=== PATIENT | female | born 1945 | race Caucasian/White ===

== ENCOUNTER → 2017-03-24 | Outpatient (CLI) | payer MEDICARE, OTHER ==
--- NOTE | 2017-03-24 14:00 | BD ---
EXAMINATION TYPE: MG DEXA axial skeleton. DATE OF EXAM: 03/24/2017 COMPARISON: 02.14.2015 CLINICAL HISTORY: PT IS A 71 YR OLD FEMALE: ICD-10 CODE: M81.0 AGE RELATED OSTEOPOROSIS Height: 63.5 Weight: 191 FRAX RISK QUESTIONS: Alcohol (3 or more units per day): NO Family History (Parent hip fracture): NO Glucocorticoids (More than 3mos): NO (Ex: prednisone, prednisolone, methylprednisolone, dexamethasone, and hydrocortisone). History of Fracture in Adulthood: YES Secondary Osteoporosis: NO 1. Type 1 Diabetes: NO 2. Hyperthyroidism: NO 3. Menopause before 45: NO 4. Malnutrition: NO 5. Chronic liver disease: NO Rheumatoid Arthritis: NO Current Tobacco Use: NO RISK FACTORS HISTORY OF: FOOT AND TOES...> 52 YRS OLD Family History of Osteoporosis: NO Active: YES Diet low in dairy products/other sources of calcium: NO Postmenopausal woman: YES HYST AT AGE 57 YRS OLD Hyperparathyroidism: NO Adrenal Insufficiency: NO MEDICATIONS: Additional Medications: BP MEDS, STATIN FOR CHOLESTEROL, VIT D AND CALCIUM PRN Additional History: NONE TO NOTE EXAM MEASUREMENTS: Bone mineral densitometry was performed using the [employer] System. Bone mineral density as measured about the Lumbar spine is: ----- L1-L4(G/cm2): 1.091 T Score Values are as follows: ----- L1: -1.3 ----- L2: -0.6 ----- L3: 0.2 ----- L4: -1.3 ----- L1-L4: -0.7 Bone mineral density has: Increased 1.9% since study of: 02.14.2015 Bone mineral density about the R hip (g/cm2): 0.854 Bone mineral density about the L hip (g/cm2): 0.819 T Score values are as follows: -----R Neck: -1.9 -----L Neck: -2.3 -----R Total: -1.2 -----L Total: -1.5 Bone mineral density has: Increased 0.5% since study of: 02.14.2015 FRAX%S: THERE IS A 19.7% CHANCE OF A MAJOR OSTEOPOROTIC FX AND A 4.1% FOR HIP FX....PROBABILITY OF FX IN 10 YRS TIME IMPRESSION: Osteopenia (T Score between -2.5 and -1) as noted by T score values with respect to the bilateral hip s. There is slightly increased risk of fracture and the patient may be considered for treatment. Re-Screen 2-5 years. NOTE: T-SCORE=SD OF THE YOUNG ADULT MEAN.
== END | disposition home or self-care (01) ==
LOC: RADBDWWP 12:22
PROVIDERS: ATTEND Family Medicine
DX: M85.89 Other specified disorders of bone density and structure, multiple sites (principal)
CPT/HCPCS: 77080

== ENCOUNTER → 2017-05-13 | Outpatient (CLI) | payer MEDICARE, OTHER ==
--- NOTE | 2017-05-13 14:09 | US ---
EXAMINATION TYPE: US venous doppler duplex LE DATE OF EXAM: 05/13/2017 1:46 PM COMPARISON: NONE CLINICAL HISTORY: I83.893 Varicose veins bilateral lower extremities. Pt states redness, pain left me dial calf/ states she was diagnosed with phlebitis SIDE PERFORMED: Bilateral TECHNIQUE: The lower extremity deep venous system is examined utilizing real time linear array sonog john with graded compression, doppler sonography and color-flow sonography. VESSELS IMAGED: External Iliac Vein (EIV) Common Femoral Vein Deep Femoral Vein Greater Saphenous Vein * Femoral Vein Popliteal Vein Small Saphenous Vein * Proximal Calf Veins (* superficial vessels) Right Leg: Negative for DVT Left Leg: Negative for DVT, in area of redness and pain there is probable thrombophlebitis left medi al calf Grayscale, color doppler, spectral doppler imaging performed of the deep veins of the lower extremiti es. There is normal flow, compressibility, vascular waveforms. IMPRESSION: 1. No sonographic evidence of deep venous arthrosis within either lower extremity. 2. Markedly enlarged and some partially thrombosed superficial vasculature most compatible with throm bophlebitis/superficial venous thrombosis of varicoceles veins of the medial upper calf in the patien t's area of pain.
== END ==
LOC: RADUSWWP 13:18
PROVIDERS: ATTEND Family Medicine
DX: I83.893 Varicose veins of bilateral lower extremities with other complications (principal)
CPT/HCPCS: 93970

== ENCOUNTER → 2020-01-11 | Outpatient (CLI) | payer MEDICARE ==
--- NOTE | 2020-01-12 14:26 | BD ---
EXAMINATION TYPE: Axial Bone Density DATE OF EXAM: 01/11/2020 COMPARISON: 03/24/2017 CLINICAL HISTORY: Height: 62.5 IN Weight: 206 LBS FRAX RISK QUESTIONS: History of Fracture in Adulthood: YES RT FOOT AGE 64 Secondary Osteoporosis: Rheumatoid Arthritis: YES RISK FACTORS HISTORY OF: Active: YES Postmenopausal woman: TOTAL HYST AGE 56 MEDICATIONS: Additional Medications: VIT D, CHOLESTEROL MEDS, BLOOD THINNER, ATENOLOL, RESTLESS LEGS MEDS, MEDICAT ION FOR AFIB, B-12,ASPIRIN LOW DOSE Additional History: UTERINE CANCER EXAM MEASUREMENTS: Bone mineral densitometry was performed using the [employer] System. Bone mineral density as measured about the Lumbar spine is: ----- L1-L4(G/cm2): 1.110 T Score Values are as follows: ----- L2: 0.1 ----- L3: 0.1 ----- L4: -1.6 ----- L1-L4: -0.6 Bone mineral density has: Increased 1.1% since study of: 03/24/2017 Bone mineral density about the R hip (g/cm2): 0.713 Bone mineral density about the L hip (g/cm2): 0.699 T Score values are as follows: -----R Neck: -2.3 -----L Neck: -2.4 -----R Total: -1.6 -----L Total: -1.7 Bone mineral density has: Decreased -3.9% since study of: 03/24/2017 IMPRESSION: Osteopenia (T Score between -2.5 and -1). There is slightly increased risk of fracture and the patient may be considered for treatment. Re-Screen 2-5 years. NOTE: T-SCORE=SD OF THE YOUNG ADULT MEAN.
== END | disposition home or self-care (01) ==
LOC: RADBDWWP 16:02
PROVIDERS: ATTEND Nurse Practitioner Family
DX: Z13.820 Encounter for screening for osteoporosis (principal); M85.80 Other specified disorders of bone density and structure, unspecified site
CPT/HCPCS: 77080

== ENCOUNTER → 2021-09-14 | Outpatient (CLI) | payer MEDICARE ==
--- NOTE | 2021-09-14 17:50 | CT ---
EXAMINATION TYPE: CT angio chest CT DLP: 502.8 mGycm, Automated exposure control for dose reduction was used. DATE OF EXAM: 09/14/2021 5:33 PM COMPARISON: None. CLINICAL INDICATION:Female, 75 years old with history of R06.09 Dyspnea; SOB TECHNIQUE/CONTRAST: CTA scan of the thorax is performed with IV Contrast, patient injected with 90 mL of Isovue 370, pulm onary embolism protocol. MIP images are created and reviewed. FINDINGS: Pulmonary Artery: There is no evidence for a filling defect within the pulmonary vasculature to sugge st acute pulmonary embolism. The pulmonary artery is of normal size. Lungs/Pleura: No evidence of focal consolidation, pleural effusion or pneumothorax. Airway: Large airways are patent. Heart: The heart is mildly enlarged for size. Vasculature: No evidence of aortic aneurysm. Mediastinum: No gross evidence of adenopathy. Musculoskeletal: No acute osseous abnormalities. Partially visualized fixation hardware in the lower cervical spine. There is multilevel disc degeneration changes throughout the spine. Soft Tissues: Unremarkable. Lower neck: No significant findings. Upper Abdomen: No significant findings. IMPRESSION: 1. No evidence of pulmonary embolism. 2. Mild cardiomegaly.
== END | disposition home or self-care (01) ==
LOC: RADCTMAIN 15:19
PROVIDERS: ATTEND Internal Medicine
DX: I51.7 Cardiomegaly (principal); R06.09 Other forms of dyspnea
CPT/HCPCS: 82565; 84520; 71275; 36415; Q9967

== ENCOUNTER → 2022-01-09 | Outpatient (CLI) | payer MEDICARE ==
[2022-01-09 23:52] LABS: HCT 38.4 % (37.2-46.3); HGB 12.4 g/dL (12.0-15.0); MCH 29.8 pg (27.0-32.0); MCHC 32.3 g/dL (32.0-37.0); MCV 92.3 fL (80.0-97.0); Mean Platelet Volume 10.1 fL (9.5-12.2); NRBC Per 100 WBC 0 /100 WBCS (0.0-0.0); Platelet Count 252 X 10*3/uL (140-440); RBC 4.16 X 10*6/uL (4.10-5.20); RDW 12.2 % (11.5-14.5); WBC 11.28 X 10*3/uL (4.50-10.00)
[2022-01-10 00:05] LABS: African American GFR (CKD) 99.1 (60.0-200.0); Anion Gap 11.6 mmol/L (10.00-18.00); Blood Urea Nitrogen 14.2 mg/dL (9.0-27.0); Carbon Dioxide 25.2 mmol/L (20.0-27.5); Non-African American GFR(CKD) 85.5 (60.0-200.0); Potassium 4.1 mmol/L (3.5-5.5)
== END | disposition home or self-care (01) ==
LOC: LABPAT 14:57
PROVIDERS: ATTEND Internal Medicine Interventional Cardiology
DX: Z01.812 Encounter for preprocedural laboratory examination (principal); R07.9 Chest pain, unspecified
CPT/HCPCS: 80051; 82565; 84520; 85027

== ENCOUNTER 2022-01-11 08:37 | Day surgery (SDC) | payer MEDICARE ==
[2022-01-09 10:58] VITALS: BMI 34.3
[~2022-01-11 08:37] MED LIST: ALPRAZolam 0.25 MG TAB PO PRN; ALPRAZolam 0.5 MG TAB PO PRN; ASPIRIN 325 MG TAB PO STA; ATORVASTATIN 80 MG TAB PO STA; HEPARIN SODIUM,PORCINE 10,000 UNIT in SODIUM CHLORIDE 0.9% 1,000 ML IRRIGATION PRN; HEPARIN SODIUM,PORCINE 2,500 UNIT in SODIUM CHLORIDE 0.9% 250 ML IRRIGATION PRN; NITROGLYCERIN SL TABS 0.4 MG TAB SUBLINGUAL PRN
[2022-01-11] MEDS: SODIUM CHLORIDE 0.9% 1,000 ML in EMPTY BAG 1 BAG IV SCH ×2 (09:02→16:31)
[2022-01-11] MEDS ORDERED: VERAPAMIL 2.5 MG/ML 2 ML AMP ONE (09:10)
[2022-01-11] MEDS ORDERED: HEPARIN SODIUM 1,000 UN/ML (10ML VL) ONE (09:29)
[2022-01-11] MEDS ORDERED: MIDAZOLAM 2 MG/2 ML VIAL IV ONE (09:34)
[2022-01-11] MEDS ORDERED: LIDOCAINE 1% INJ 10MG/ML (30 ML VIAL-PF) SQ ONE (09:41)
[2022-01-11] MEDS ORDERED: VERAPAMIL SYRINGE (5 MG/10 ML) INTRAARTER ONE (09:42)
[2022-01-11] MEDS: HEPARIN SODIUM 1,000 UN/ML (10ML VL) IV ONE ×2 (09:44→09:56)
[2022-01-11] MEDS ORDERED: niCARdipine 25 MG/10 ML VIAL ONE (09:57)
[2022-01-11] MEDS ORDERED: NOREPINEPHRINE 4 MG in SODIUM CHLORIDE 0.9% 250 ML IV ONE (10:10)
[2022-01-11] MEDS ORDERED: CLOPIDOGREL 75 MG TAB ONE (10:34)
[2022-01-11] MEDS ORDERED: CLOPIDOGREL 75 MG TAB PO ONE (10:36)
[2022-01-11] MEDS ORDERED: NITROGLYCERIN 1000MCG/10ML SYRINGE INTRACORON ONE (10:54)
[2022-01-11] MEDS ORDERED: IOPAMIDOL-370 125ML BTL INJ ONE (11:04)
[2022-01-11] MEDS ORDERED: NITROGLYCERIN SL TABS 0.4 MG TAB SUBLINGUAL PRN ×2 (11:14→11:15)
[2022-01-11] MEDS ORDERED: RX INFO: IV CONTRAST WAS GIVEN 1 EACH MISC MISCELLANE PRN (11:15)
[2022-01-11] MEDS ORDERED: ZOLPIDEM 5 MG TAB PO PRN (11:15)
[2022-01-11] MEDS ORDERED: ATROPINE SULFATE 0.1 MG/ML 10ML SYRINGE IV PRN (11:15)
[2022-01-11] MEDS ORDERED: MAG HYDROX/AL HYDROX/SIMETH 30 ML CUP PO PRN (11:15)
[2022-01-11] MEDS ORDERED: SODIUM CHLORIDE 0.9% 1,000 ML in EMPTY BAG 1 BAG IV SCH (11:15)
--- NOTE | 2022-01-11 11:24 | P.PCN ---
Date of Procedure: 01/11/22 Operative Findings: CARDIAC CATHETERIZATION AND PERCUTANEOUS CORONARY INTERVENTION PERFORMING PHYSICIAN: Da Chacon MD, [facility] PROCEDURE PERFORMED: 1. Selective right and left coronary angiogram 2. Left heart catheterization 3. Successful stenting of proximal LCx using 3.0 x 15 mm Xience ANTONIO which with an excellent angiographic results 4. Intravascular ultrasound of the left circumflex coronary artery INDICATION: This is a 76-year-old female patient was coronary artery disease and prior stenting of the LAD and known intermediate disease involving a dominant left circumflex as well as hypertension and dyslipidemia and paroxysmal atrial fibrillation was seen in the office recently for further evaluation of chest discomfort. She underwent myocardial perfusion imaging stress test and that showed large area of reversibility involving the inferolateral segment of the LV. In the light of that a heart catheterization wasn't by COMPLICATION: None APPROACH: Right radial artery LEVEL OF SEDATION: Moderate with the sedation time off 84 minutes PROCEDURE DESCRIPTION: After obtaining an informed consent the patient was brought to the cardiac labour market economist. The right radial artery was cannulated using micropuncture technique, the micropuncture wire passed easily then I placed a 6-Afghan sheath in the right radial artery. At that 0.2 mg of verapamil intra-arterial and 5000 use of heparin intravenous given. Selective right and left coronary angiogram performed using JR4 and JL 3.5 catheters. After that the heart catheterization was performed using 6-Afghan pigtail catheter. I did after that intervene on the left circumflex coronary artery. SELECTIVE CORONARY ANGIOGRAM: The right coronary artery: Medium caliber vessel and nondominant vessel. The LCx is critically disease in the midportion and diffusely disease as well as. Left main: Large caliber vessel was mild disease only. Bifurcates into a LCx and LAD The left circumflex: Large caliber vessel a dominant vessel. The proximal LCx which is a large caliber vessel has eccentric calcified lesion appears to be critical in the range of 99.9%. The circumflex distally has mild disease only and gives rises into alcohol obtuse marginal branches before it bifurcates into PDA and PLV branches. The left anterior descending artery: Large caliber vessel. The proximal LAD has mild disease only. The mid LAD is a stented and the stent is patent. The LAD in the midportion gives rises into a large size diagonal branch has a lesion appeared to be in the range of 80% proximally. The LAD distally appears to be angiographically normal. HEMODYNAMICS: The LVEDP was about 4 mmHg was no significant gradient across aortic valve PCI OF THE LCx: Anticoagulation was initiated using heparin with continuous ACT monitoring throughout the procedure. I did engage the left main using an LCx 3.0 guiding catheter. I did wire the left circumflex using a whisper wire. Initially the wire went to the LAD so I left the wire temporary in the LAD to under the guide until I get another wire to the LCx then I pulled the wire from the LAD and I try to wire the LCx with a mamadou wire but the wire would not cross I pulled the wire out. Balloon angioplasty of the LCx was initiated using initially 1.5 mm balloon and subsequently 2.0 mm balloon and subsequently 2.5 mm balloon. I started with a small balloon because the lesion was eccentric and critical and on angulation. Attempting advancing 3.0 x 15 mm stent was unsuccessful because the stent would not cross the lesion in the mid left circumflex coronary artery. At that point I attempted advancing the stent with adjunctive use of guide liner and that also was unsuccessful. Again I balloon the LCx at that point using 3.0 mm balloon. Subsequently attempting advancing the stent was again unsuccessful. I did again this time balloon the LCx using 3.0 noncompliant balloon which was inflated under 20 yovana for 20 seconds. Attempting advancing the stent with adjunctive use of guide liner was again unsuccessful. At that point I pulled the guide liner out and I wire the left circumflex was a mamadou wire and that was a run-through wire. Please note that at the beginning I did exchange to whisper wire into a run-through wire using super cross catheter. Now attempting advancing the stent over the run-through wire was successful. I deployed the stent under 12 yovana for 20 seconds. The following angiogram showed an edge dissection appeared to be nonflow limiting and no dye staining and by the end we achieved ISABEL-3 flow. I did an intravascular ultrasound and that showed that the stent was well opposed to the wall. I could not advance the IVUS catheter distal to the stented segment to check the small dissection/edge dissection. Because we achieved ISABEL-3 flow and the patient was asymptomatic and hemodynamically stable and the dissection was nonflow limiting we decided to stop. CONCLUSION: #1 patent stent in the LAD. Critical disease involving the first large diagonal branch #2 critical disease involving the proximal LCx which is a dominant vessel. I performed successful stenting of the LCx with a good angiographic results #3 subtotally occluded and diffusely disease nondominant medium sized right coronary artery POSTPROCEDURE MANAGEMENT: #1 dual antiplatelet therapy aspirin and Plavix for at least 12 months #2 aggressive cholesterol control #3 follow-up with the patient
[2022-01-11] MEDS: GABAPENTIN 300 MG CAP PO SCH (20:04)
[2022-01-11] MEDS ORDERED: ATORVASTATIN 80 MG TAB PO SCH (21:00)
[2022-01-11] MEDS ORDERED: atenoloL 50 MG TAB PO SCH (21:00)
[2022-01-11] MEDS ORDERED: DILTIAZEM CD 120 MG CAP.ER.24H PO SCH (21:00)
[2022-01-11] MEDS ORDERED: ASPIRIN 81 MG PO SCH (21:00)
[2022-01-12 03:14] VITALS: RESP 18; TEMP 97.9
--- NOTE | 2022-01-12 06:47 | P.DS ---
Providers Attending physician: Da Chacon Consults: 01/11/22 11:15 Consult Physician Routine Consulting Provider: [facility] Consult Reason/Comments: Post Interventional Patient Do you want consulting provider notified?: Already Contacted Primary care physician: Stated None Hospital Course: The patient is a pleasant 76-year-old female patient who was seen in the office recently for further evaluation of chest discomfort. She underwent myocardial perfusion imaging stress test and that came in to be abnormal showing large area of reversibility laterally. In the light of that a heart catheterization was advised. The heart catheterization revealed critical disease involving the proximal LCx. She underwent yesterday successful stenting a challenging lesion in the left circumflex with a good angiographic results. She was seen this morning. Today's January [id number]. She is asymptomatic from a perivascular standpoint overview. He is hemodynamically stable. She will be discharged on triple therapy. I'll follow-up with the patient in a week. Plan - Discharge Summary Discharge Rx Participant: Yes New Discharge Prescriptions: New Clopidogrel [Plavix] 75 mg PO DAILY #90 tab Continue rOPINIRole HCL [Requip] 0.5 mg PO TID Atorvastatin [Lipitor] 80 mg PO HS #30 tab lisinopriL [Zestril] 5 mg PO DAILY #30 tab Nitroglycerin Sl Tabs [Nitrostat] 0.4 mg SUBLINGUAL Q5M PRN #25 tab PRN Reason: Chest Pain atenoloL [Tenormin] 100 mg PO DAILY Aspirin EC [Ecotrin] 81 mg PO HS Gabapentin [Neurontin] 300 mg PO BID atenoloL [Tenormin] 50 mg PO HS Ergocalciferol [Vitamin D2 (1250 Mcg = 06449 Iu)] 1,250 mcg PO DIEGO hydroCHLOROthiazide 25 mg PO DAILY dilTIAZem HCL [dilTIAZem HCL 24Hr ER] 120 mg PO HS Changed Apixaban [Eliquis] 2.5 mg PO BID #0 Discharge Medication List rOPINIRole HCL [Requip] 0.5 mg PO TID 01/18/15 [History] Atorvastatin [Lipitor] 80 mg PO HS #30 tab 07/14/15 [Rx] Nitroglycerin Sl Tabs [Nitrostat] 0.4 mg SUBLINGUAL Q5M PRN #25 tab 07/14/15 [Rx] lisinopriL [Zestril] 5 mg PO DAILY #30 tab 07/14/15 [Rx] Aspirin EC [Ecotrin] 81 mg PO HS 01/09/22 [History] Ergocalciferol [Vitamin D2 (1250 Mcg = 16878 Iu)] 1,250 mcg PO DIEGO 01/09/22 [History] Gabapentin [Neurontin] 300 mg PO BID 01/09/22 [History] atenoloL [Tenormin] 50 mg PO HS 01/09/22 [History] atenoloL [Tenormin] 100 mg PO DAILY 01/09/22 [History] dilTIAZem HCL [dilTIAZem HCL 24Hr ER] 120 mg PO HS 01/09/22 [History] hydroCHLOROthiazide 25 mg PO DAILY 01/09/22 [History] Apixaban [Eliquis] 2.5 mg PO BID #0 01/12/22 [Rx] Clopidogrel [Plavix] 75 mg PO DAILY #90 tab 01/12/22 [Rx] Follow up Appointment(s)/Referral(s): Da Chacon MD [STAFF PHYSICIAN] - 01/24/22 9:45 am (FOLLOW UP IS ON FridayJanuary AT 9:45 AM) Patient Instructions/Handouts: Moderate Sedation (DC), After Radial Heart Catheterization (GEN) Activity/Diet/Wound Care/Special Instructions: *NO LIFTING, PUSHING, OR PULLING ANYTHING OVER 5 POUNDS FOR 5 DAYS *NO DRIVING FOR 3 DAYS *YOU CAN REMOVE YOUR DRESSING AND SHOWER TOMORROW BUT DO NOT SUBMERSE YOUR PUNCTURE SITE IN WATER FOR AT LEAST 5 DAYS *NO TUB BATHS, POOLS, HOT TUBS, DISHES...ETC *ANY SIGNS OF BLEEDING (HARDNESS, SWELLING, OR EXCESSIVE BRUISING) HOLD DIRECT PRESSURE ON YOUR PUNCTURE SITE AND COME TO THE NEAREST EMERGENCY ROOM TO GET YOUR PUNCTURE SITE LOOKED AT - DO NOT DRIVE YOURSELF! EITHER CALL EMS OR HAVE SOMEONE DRIVE YOU!
[2022-01-12 08:04] LABS: African American GFR (CKD) >90 (>60 ml/min/1.73 sqM); Non-African American GFR(CKD) 90 (>60 ml/min/1.73 sqM)
[2022-01-12] MEDS ORDERED: CLOPIDOGREL 75 MG TAB PO SCH (09:00)
[2022-01-12] MEDS ORDERED: hydroCHLOROthiazide 25 MG TAB PO SCH (09:00)
[2022-01-12] MEDS ORDERED: atenoloL 50 MG TAB PO SCH (09:00)
[2022-01-12] MEDS ORDERED: lisinopriL 5 MG TAB PO SCH (09:00)
[2022-01-12] MEDS: GABAPENTIN 300 MG CAP PO SCH (09:37)
[2022-01-12 10:06] VITALS: BP 112/67; PULSE 57
[2022-01-12] MEDS: SODIUM CHLORIDE 0.9% 1,000 ML in EMPTY BAG 1 BAG IV SCH (10:11)
[2022-01-13] MEDS ORDERED: ERGOCALCIFEROL 1,250 MCG (50,000 IU) CAPSULE PO SCH (09:00)
== END 2022-01-12 11:31 | disposition home or self-care (01) ==
LOC: CATHCVL 08:37 → 3SCARD 11:04 → CATHCVL 01-12 11:31
PROVIDERS: ATTEND Internal Medicine Interventional Cardiology
DX: I48.0 Paroxysmal atrial fibrillation (principal); I10 Essential (primary) hypertension; E78.5 Hyperlipidemia, unspecified; I25.10 Atherosclerotic heart disease of native coronary artery without angina pectoris; Z79.82 Long term (current) use of aspirin; Z79.899 Other long term (current) drug therapy; I34.0 Nonrheumatic mitral (valve) insufficiency
CPT/HCPCS: 92978; 93458; 82565; C9600; J2250; J2001; J1644; Q9967

== ENCOUNTER → 2022-05-31 | Outpatient (CLI) | payer MEDICARE | END | disposition home or self-care (01) | LOC: LABWHC1 10:56 | PROVIDERS: ATTEND Psychiatry & Neurology Neurology | DX: M54.12 Radiculopathy, cervical region (principal); G62.9 Polyneuropathy, unspecified | CPT/HCPCS: 36415; 82306; 82607; 83036 ==

== ENCOUNTER → 2023-04-16 | Outpatient (CLI) | payer MEDICARE ==
--- NOTE | 2023-04-17 21:03 | MM ---
Reason for Exam: Screening (asymptomatic). Last mammogram was performed 8 year(s) and 0 month(s) ago. Patient History: Menarche at age 14. First Full-Term at age 23. Hysterectomy at age 57. Postmenopausal. Endometrial cancer at or over age 50. Risk Values: Yuki 5 year model risk: 1.6%. NCI Lifetime model risk: 3.4%. Tissue Density: There are scattered fibroglandular densities. Findings: Analyzed By CAD. No priors available for comparison purposes. There are benign bilateral secretory calcifications. In the left breast, located centrally and posteriorly in the outer aspect, there is an asymmetric density for which further evaluation is recommended. Also in the left breast, there is a subareolar focal asymmetry for which further evaluation is recommended. Otherwise, no suspicious microcalcification or other discrete abnormality is seen. Overall Assessment: Incomplete: need additional imaging evaluation, BI-RAD 0 Management: Special View Mammogram of the left breast. Diagnostic Breast Ultrasound of the left breast. . [facility] will attempt to contact patient to return for supplemental views and ultrasound if indicated. Electronically signed and approved by: Brittany Marte M.D. Radiologist
== END | disposition home or self-care (01) ==
LOC: RADMAMWWP 15:13
PROVIDERS: ATTEND Family Medicine
DX: Z12.31 Encounter for screening mammogram for malignant neoplasm of breast (principal); Z78.0 Asymptomatic menopausal state
CPT/HCPCS: 77067

== ENCOUNTER → 2023-04-16 | Outpatient (CLI) | payer MEDICARE | END | disposition home or self-care (01) | LOC: LABWHC1 15:34 | PROVIDERS: ATTEND Psychiatry & Neurology Neurology | DX: G62.9 Polyneuropathy, unspecified (principal); Z79.899 Other long term (current) drug therapy | CPT/HCPCS: 36415; 82306 ==

== ENCOUNTER → 2023-04-22 | Outpatient (CLI) | payer MEDICARE ==
--- NOTE | 2023-04-22 08:33 | MM ---
Reason for Exam: Additional evaluation requested from abnormal screening. Last screening mammogram was performed less than 1 month ago. Patient History: Menarche at age 14. First Full-Term at age 23. Hysterectomy at age 57. Postmenopausal. Endometrial cancer at or over age 50. Paternal aunt had breast cancer at or over age 50. Risk Values: Yuki 5 year model risk: 1.6%. NCI Lifetime model risk: 3.4%. Prior Study Comparison: 03/17/2015 Bilateral Screening 3D/Tomosynthesis, Unknown. 04/16/2023 Bilateral MG screening mammo w CAD, [facility]. Tissue Density: Left: The breast tissue is heterogeneously dense. This may lower the sensitivity of mammography. Findings: Analyzed By CAD. Nodular density retroareolar region lower inner quadrant 2.5 cm from the nipple measuring 7 mm. Additional density 12 cm from the nipple upper outer quadrant. Ultrasound recommended for both these regions. Overall Assessment: Incomplete: need additional imaging evaluation, BI-RAD 0 Management: Diagnostic Breast Ultrasound of the left breast. . Results were given to the patient verbally at the time of exam. Patient should continue monthly self-breast exams. A clinical breast exam by your physician is recommended on an annual basis. This exam should not preclude additional follow-up of suspicious palpable abnormalities. Note on Yuki scores and lifetime risk: 1. A Yuki score greater than 3% is considered moderate risk. If this is the case, consider specialist referral to assess eligibility for a risk reducing agent. 2. If overall lifetime risk for the development of breast cancer is 20% or higher, the patient may qualify for future screening with alternating mammogram and breast MRI. Electronically signed and approved by: Stew Montesinos M.D. Radiologis
--- NOTE | 2023-04-22 09:20 | USB ---
Reason for Exam: Additional evaluation requested from abnormal screening. Patient History: Menarche at age 14. First Full-Term at age 23. Hysterectomy at age 57. Postmenopausal. Endometrial cancer at or over age 50. Paternal aunt had breast cancer at or over age 50. Risk Values: Yuki 5 year model risk: 1.6%. NCI Lifetime model risk: 3.4%. Technique: Method: Targeted. Prior Study Comparison: 03/17/2015 Bilateral Screening 3D/Tomosynthesis, Unknown. 04/16/2023 Bilateral MG screening mammo w CAD, [facility]. Findings: The upper outer quadrant of the left breast, the lower inner quadrant of the left breast, the axilla of the left breast and the retroareolar of the left breast were scanned. At the left 12:00 periareolar region there is a hyperechoic lesion posterior shadowing slightly irregular margins. This could reflect, tissue diagnosis is recommended to exclude malignancy. There is a 5 mm ovoid smoothly marginated hypoechoic lesion at the left 1:00 position which has a benign appearance. There is also shadowing at the left 2:00 position 12 cm from the nipple. Follow-up is recommended.. Overall Assessment: Suspicious, BI-RAD 4 Management: Ultrasound Core Biopsy of the left breast. A clinical breast exam by your physician is recommended on an annual basis and results should be correlated with mammographic findings. This exam should not preclude additional follow-up of suspicious palpable abnormalities. Results were given to the patient verbally at the time of exam. Electronically signed and approved by: Stew Montesinos M.D. Radiologis
== END | disposition home or self-care (01) ==
LOC: RADMAMWWP 07:55
PROVIDERS: ATTEND Family Medicine
DX: N64.9 Disorder of breast, unspecified (principal); R92.332 Mammographic heterogeneous density, left breast; Z80.3 Family history of malignant neoplasm of breast; Z78.0 Asymptomatic menopausal state
CPT/HCPCS: 77065; 76642; G0279; 77061

== ENCOUNTER → 2023-06-02 | Day surgery (SDC) | payer MEDICARE | LOC: RADUSWWP 12:29 | PROVIDERS: ATTEND Family Medicine | DX: R92.8 Other abnormal and inconclusive findings on diagnostic imaging of breast (principal) | CPT/HCPCS: 77065; 19083; A4648; 88305 ==

== ENCOUNTER → 2023-12-05 | Outpatient (CLI) | payer MEDICARE ==
--- NOTE | 2023-12-05 11:18 | MM ---
Reason for Exam: Follow-up at short interval from prior study. Last screening mammogram was performed 8 month(s) ago. Patient History: Menarche at age 14. First Full-Term at age 23. Hysterectomy at age 57. Postmenopausal. Endometrial cancer at or over age 50. 06/02/2023, Benign US biopsy breast VAD LT on the left side. Paternal aunt had breast cancer at or over age 50. Risk Values: Yuki 5 year model risk: 1.9%. NCI Lifetime model risk: 3.8%. Prior Study Comparison: 04/16/2023 Bilateral MG screening mammo w CAD, [facility]. 04/22/2023 Left MG 3D work up w/cad LT, [facility]. 06/02/2023 Left MG diagnostic mammo LT wo CAD., [facility]. Tissue Density: Left: There are scattered areas of fibroglandular density. Findings: Analyzed By CAD. Pattern is stable. Benign linear and punctate calcifications are present. Core marker is within the anterior left breast. Nodularity outer left breast. No suspicious groups of microcalcifications, spiculated or lobular masses, architectural distortion or other secondary signs of malignancy are mammographically apparent. Overall Assessment: Benign, BI-RAD 2 Management: Screening Mammogram of both breasts in 6 months. A negative mammogram report should not preclude additional follow up of suspicious palpable abnormalities. Patient should continue monthly self breast exam. A clinical breast exam by your physician is recommended on an annual basis and results should be correlated with mammographic findings. Note on Yuki scores and lifetime risk: 1. A Yuki score greater than 3% is considered moderate risk. If this is the case, consider specialist referral to assess eligibility for a risk reducing agent. 2. If overall lifetime risk for the development of breast cancer is 20% or higher, the patient may qualify for future screening with alternating mammogram and breast MRI. [facility], , 12/05/2023 10:58 AM. Electronically signed and approved by: Heladio Elias D.O. Radiologis
== END | disposition home or self-care (01) ==
LOC: RADMAMWWP 10:41
PROVIDERS: ATTEND Family Medicine
DX: R92.8 Other abnormal and inconclusive findings on diagnostic imaging of breast
CPT/HCPCS: 77061; 77065